=== PATIENT | female | born 1940 | race Caucasian/White ===

== ENCOUNTER 2021-01-29 06:35 | Outpatient (REF) | payer SELFPAY ==
[2021-01-29 06:40] LABS: MANUAL DIFF FLAG NO
[2021-01-29 06:46] LABS: Basophils Percent Auto 0.1 % (0-2); Eosinophils Absolute Auto 0.3 X10*3/uL (0.0-0.4); Eosinophils Percent Auto 1.7 % (0-4); Hematocrit 27.5 % (37.0-47.0); Hemoglobin 7.9 g/dl (12.0-16.0); Imm Gran Abs Auto 0.31 X10*3/uL (0.00-0.03); Imm Gran Pct Auto 2.1 % (0.0-0.4); Lymphocytes Absolute Auto 1.1 X10*3/uL (1.2-4.9); Lymphocytes Percent Auto 7.7 % (20-40); Mean Corpuscular HGB Conc 28.7 g/dl (31.0-35.0); Mean Corpuscular Hemoglobin 26.1 pg (27.0-33.0); Mean Corpuscular Volume 90.8 fL (80.0-98.0); Mean Platelet Volume 9.4 fL (9.4-12.3); Monocytes Absolute Auto 1.1 X10*3/uL (0.1-1.2); Monocytes Percent Auto 7.9 % (2-11); Neutrophils Absolute Auto 11.6 x10*3/uL (2.0-8.3); Neutrophils Percent Auto 80.5 % (45-73); Platelet Count 350 X10*3/uL (160-400); Red Blood Count 3.03 X10*6/uL (4.20-5.50); Red Cell Distribution Width 17.3 % (11.0-16.0); White Blood Count 14.4 X10*3/uL (4.8-10.8)
[2021-01-29 07:06] LABS: Alanine Aminotransferase 12 U/L (0-31); Albumin Level 2.4 g/dL (3.5-5.0); Alkaline Phosphatase 69 U/L (39-117); Anion Gap 14 (12-20); Aspartate Amino Transferase 11 U/L (5-31); Bilirubin Total 0.4 mg/dL (0.0-1.0); Blood Urea Nitrogen 52 mg/dL (9-16); Calcium 6.8 mg/dL (8.4-10.2); Carbon Dioxide 33 mmol/L (22-29); Chloride 99 mmol/L (96-108); Estimated Glomerular Filt Rate 17; Glucose Random 95 mg/dL (60-115); Potassium 3.8 mmol/L (3.3-5.1); Sodium 142 mmol/L (135-145); Total Protein 5.1 g/dL (6.5-8.0)
== END 2021-01-29 06:36 | disposition home or self-care (01) ==
LOC: HO.MMNH1L 06:35
PROVIDERS: Visit Provider Family Medicine
DX: I48.91 Unspecified atrial fibrillation (principal); M18.9 Osteoarthritis of first carpometacarpal joint, unspecified; E11.9 Type 2 diabetes mellitus without complications
CPT/HCPCS: 36415; 80053; 85025

== ENCOUNTER 2021-02-24 00:24 | Outpatient (REF) | payer SELFPAY | END 2021-02-24 00:25 | disposition home or self-care (01) | LOC: HO.MMNH1L 00:24 | PROVIDERS: Visit Provider Family Medicine | DX: Z13.89 Encounter for screening for other disorder (principal) ==

== ENCOUNTER 2021-03-03 00:53 | Outpatient (REF) | payer SELFPAY | END 2021-03-03 00:54 | disposition home or self-care (01) | LOC: HO.MMNH1L 00:53 | PROVIDERS: Visit Provider Family Medicine | DX: Z13.89 Encounter for screening for other disorder (principal) ==

== ENCOUNTER 2021-04-11 15:00 | Outpatient (REF) | payer SELFPAY | END 2021-04-11 15:01 | disposition home or self-care (01) | LOC: HO.MMNH1L 15:00 | PROVIDERS: Visit Provider Family Medicine | DX: L89.154 Pressure ulcer of sacral region, stage 4 (principal); E08.40 Diabetes mellitus due to underlying condition with diabetic neuropathy, unspecified; M19.90 Unspecified osteoarthritis, unspecified site | CPT/HCPCS: 87040; 87147; 87186; 87205 ==

== ENCOUNTER 2021-05-05 00:37 | Outpatient (REF) | payer MEDICARE, SELFPAY | END 2021-05-05 00:38 | disposition home or self-care (01) | LOC: HO.MMNH1L 00:37 | PROVIDERS: Visit Provider Family Medicine | DX: Z13.89 Encounter for screening for other disorder (principal) ==

== ENCOUNTER 2021-05-12 00:40 | Outpatient (REF) | payer SELFPAY | END 2021-05-12 00:41 | disposition home or self-care (01) | LOC: HO.MMNH1L 00:40 | PROVIDERS: Visit Provider Family Medicine | DX: Z13.89 Encounter for screening for other disorder (principal) ==

== ENCOUNTER 2021-11-14 05:47 | Outpatient (REF) | payer MEDICARE, SELFPAY ==
[2021-11-14 06:22] LABS: Anion Gap 17 (12-20); Blood Urea Nitrogen 66 mg/dL (9-16); Calcium 8.2 mg/dL (8.4-10.2); Carbon Dioxide 22 mmol/L (22-29); Chloride 107 mmol/L (96-108); Estimated Glomerular Filt Rate 23; Glucose Random 113 mg/dL (60-115); Potassium 3.6 mmol/L (3.3-5.1); Sodium 142 mmol/L (135-145)
== END 2021-11-14 05:48 | disposition home or self-care (01) ==
LOC: HO.MMNH1L 05:47
PROVIDERS: Visit Provider Family Medicine
DX: J81.0 Acute pulmonary edema (principal)
CPT/HCPCS: 36415; 80048

== ENCOUNTER 2021-11-17 06:50 | Outpatient (REF) | payer MEDICARE, SELFPAY ==
[2021-11-17 06:58] LABS: Hematocrit 32.5 % (37.0-47.0); Hemoglobin 9.7 g/dl (12.0-16.0); Mean Corpuscular HGB Conc 29.8 g/dl (31.0-35.0); Mean Corpuscular Hemoglobin 31.5 pg (27.0-33.0); Mean Corpuscular Volume 105.5 fL (80.0-98.0); NRBC Pct Auto 0.2 /100WBC (0.0-0.2); Platelet Count 195 X10*3/uL (160-400); Red Blood Count 3.08 X10*6/uL (4.20-5.50); Red Cell Distribution Width 19.9 % (11.0-16.0); White Blood Count 15.3 X10*3/uL (4.8-10.8)
[2021-11-17 07:06] LABS: Anion Gap 15 (12-20); Blood Urea Nitrogen 61 mg/dL (9-16); Calcium 7.9 mg/dL (8.4-10.2); Carbon Dioxide 21 mmol/L (22-29); Chloride 112 mmol/L (96-108); Estimated Glomerular Filt Rate 24; Glucose Random 137 mg/dL (60-115); Potassium 3.8 mmol/L (3.3-5.1); Sodium 144 mmol/L (135-145)
== END 2021-11-17 06:51 | disposition home or self-care (01) ==
LOC: HO.MMNH1L 06:50
PROVIDERS: Visit Provider Family Medicine
DX: I48.91 Unspecified atrial fibrillation (principal); N18.9 Chronic kidney disease, unspecified; I50.9 Heart failure, unspecified
CPT/HCPCS: 36415; 80048; 85027

== ENCOUNTER 2021-11-21 06:27 | Outpatient (REF) | payer MEDICARE, SELFPAY | END 2021-11-21 06:28 | disposition home or self-care (01) | LOC: HO.MMNH1L 06:27 | PROVIDERS: Visit Provider Family Medicine | DX: Z13.89 Encounter for screening for other disorder (principal) ==